=== PATIENT | male | born 1970 | race Caucasian/White ===

== ENCOUNTER 2016-06-12 10:08 | Emergency (ER) | payer OTHER ==
--- NOTE | 2016-06-12 11:18 | UCPHY ---
H & P Patient Type: New Chief Complaint Nursing Narrative: HIT IN HEAD X 2 LAST NIGHT PLAYING HOCKEY. HIT IN FRONT WITH PUCK, BACK OF HEAD WITH HOCKEY STICK. NO LOC. TAKES ASA DAILY. C/O HEADACHE,NAUSEA,FEELING FUZZY. Time Seen by Provider: 06/12/16 10:49 HPI/ROS: CHIEF COMPLAINT: Hit by hockey puck HISTORY OF PRESENT ILLNESS: This is a 46-year-old male who was struck in the back of his head by a hockey puck last night, over 12 hours ago. He did not lose consciousness. He was wearing appropriate protection. He presents today with headache, nausea but no vomiting, and mild cognitive fogginess. He denies visual changes, difficulty with speech, confusion, new numbness, new weakness, or seizure activity. No other injuries. REVIEW OF SYSTEMS: A ten point review of systems was performed and is negative with the exception of the items mentioned in the HPI. Source: Patient Exam Limitations: No limitations - Personal History Current Tetanus/Diphtheria Vaccine: Unsure Current Tetanus Diphtheria and Acellular Pertussis (TDAP): Unsure - Medical/Surgical History Hx Asthma: No Hx Chronic Respiratory Disease: No Hx Diabetes: No Hx Cardiac Disease: No Hx Renal Disease: No Hx Cirrhosis: No Hx Alcoholism: No Hx HIV/AIDS: No Hx Splenectomy or Spleen Trauma: No Other PMH: PMH:SKIN CA,HTN,CHOLESTEROL,HEART CATH 2010 - Family History Significant Family History: No pertinent family hx - Social History Smoking Status: Never smoked Alcohol Use: None Drug Use: None Additional Social History: 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 He is . - Physical Exam Exam: General Appearance: Alert. Vital signs reviewed. Head: Small cephalohematoma over the left occiput. Eyes: Pupils equal and round, no conjunctival injection, no discharge. Anicteric. ENT, Mouth: Mucous membranes are moist, no oropharyngeal erythema or edema. No hemotympanum. Neck: Nontender to palpation over the cervical spine. No pain with active range of motion of the neck. Respiratory: Lungs are clear to auscultation; no wheezes, rales, or rhonchi. Cardiovascular: Regular rate and rhythm; no murmur, rub, or gallop. Gastrointestinal: Abdomen is obese, soft and nontender. Skin: Warm and dry, no rashes on exposed skin, normal color. Back: Nontender to palpation over the thoracolumbar spine. No CVAT. Extremities: No lower extremity edema, no calf tenderness or swelling. Neurological: Alert and oriented. Moving all four extremities easily and equally. Cranial nerves II through XII are examined and are intact (visual acuity not tested). Strength is 5 over 5 bilaterally with testing of all major motor groups. Sensation is intact to light touch over all 4 extremities. Deep tendon reflexes are 2+ in the biceps and knees bilaterally. Gait is normal. [id number] is performed accurately. Psychiatric: Normal affect. Constitutional: Initial Vital Signs Temperature (C) 36.6 C 06/12/16 11:27 Heart Rate 75 06/12/16 11:27 Respiratory Rate 18 06/12/16 11:27 Blood Pressure 124/62 H 06/12/16 11:27 O2 Sat (%) 97 06/12/16 11:27 O2 Delivery Mode Room Air Allergies/Adverse Reactions: No Known Allergies Allergy (Unverified 06/12/16 10:21) Home Medications: Medication Instructions Recorded Asa Unk Dose 06/12/16 Atorvastatin Unk Dose 06/12/16 Escitalopram Unk Dose 06/12/16 Lisinopril Unk Dose 06/12/16 Wellbutrin Unk Dose 06/12/16 Medical Decision Making ED Course/Re-evaluation: Over 12 hours out from blunt trauma to the back of his head. He has signs and symptoms of concussion. He has a Marydel coma Score of 15. He is not amnestic of the event. I do not think that brain imaging is warranted in this setting. We discussed treatment of concussion. He was given written and verbal instructions concerning concussion. He is referred to Dr. Susanne Chau as needed. Differential Diagnosis: I considered a differential diagnosis that includes but is not limited to skull fracture, intracranial hemorrhage, concussion, cervical spine injury, and infection such as meningitis. Departure - Departure Disposition: Home, Routine, Self-Care Clinical Impression: Concussion Instructions: Concussion (ED) Additional Instructions: As we discussed, I think that you have a concussion. I am referring you to Dr. Susanne Chau--if you continue with headache, difficulty focusing, nausea, any concerning symptoms--I recommend that you follow up with her. She specializes in the care of concussion and postconcussion problems. It is fine to take Tylenol for your headache pain. If you worsen in any way--severe intractable headache, vomiting, change in vision, confusion, new numbness, new weakness, or seizure--you should be re- evaluated immediately. I do not expect any of these things to happen. Referrals: Susanne Chau MD [Medical Doctor] - As per Instructions - PQRS PQRS Measurement: Does not apply.
[2016-06-12 11:29] VITALS: BP 124/62; PULSE 75; RESP 18; TEMP 98; O2SAT 97
== END 2016-06-12 11:27 | disposition home or self-care (01) ==
LOC: CED 10:08
DX: S06.0X9A Concussion with loss of consciousness of unspecified duration, initial encounter (principal); W21.220A Struck by ice hockey puck, initial encounter; W21.210A Struck by ice hockey stick, initial encounter; Y93.22 Activity, ice hockey; Y99.8 Other external cause status

== ENCOUNTER → 2018-08-20 | Outpatient (CLI) | payer BC | LOC: BMCIMAGING 09:49 | PROVIDERS: ATTEND Internal Medicine | DX: N64.4 Mastodynia (principal); R92.8 Other abnormal and inconclusive findings on diagnostic imaging of breast ==